=== PATIENT | female | born 1965 | race Caucasian/White ===

== ENCOUNTER 2022-01-26 11:12 | Outpatient (CLI) | payer BC ==
[2022-01-26 12:15] LABS: Hemoglobin 13.7 g/dL (12.0-15.5); Mean Corpuscular HGB CONC 33.3 g/dL (32.0-36.0); Mean Corpuscular Hemoglobin 30.8 pg (27.0-33.0); Mean Corpuscular Volume 92.4 fl (81.6-98.3); Mean Platelet Volume 9.3 fl (7.4-10.4); Platelet Count 302 10x3/uL (150-450); RBC Distribution Width 13.7 % (11.5-14.5); Red Blood Cell (RBC) Count 4.45 10x6/uL (3.90-5.03); White Blood Cell (WBC) Count 6.6 10x3/uL (3.5-10.5)
[2022-01-26 12:27] LABS: Prothrombin Time 11.2 sec (9.5-12.1)
[2022-01-26 12:30] LABS: Anion Gap 12 mmol/L (10-20); BUN (Urea Nitrogen) 13 mg/dL (9.8-20.1); Calc. Creatinine Clearance 0 mL/min (70-130); Calcium 9.4 mg/dL (7.8-10.44); Carbon Dioxide 31 mmol/L (22-29); Chloride 103 mmol/L (98-107); Estimated GFR 97; Glucose 88 mg/dL (70-105); Potassium 4.4 mmol/L (3.5-5.1); Sodium 142 mmol/L (136-145)
== END 2022-01-26 11:13 | disposition home or self-care (01) ==
LOC: LABBT 11:12
PROVIDERS: ATTEND Surgery
DX: Z01.818 Encounter for other preprocedural examination (principal); M51.16 Intervertebral disc disorders with radiculopathy, lumbar region; Z20.822 Contact with and (suspected) exposure to COVID-19
CPT/HCPCS: 80048; 85027; 85610; 85730; 87811; 93005; 93010

== ENCOUNTER 2022-01-29 05:56 | Observation (INO) | payer BC ==
[2022-01-27 13:03] VITALS: BMI 24.7
[2022-01-29] MEDS ORDERED: Thrombin 5000 UNITS/5 ML VIAL ONE (06:34)
[2022-01-29] MEDS ORDERED: Dexmedetomidine 200 MCG/2 ML VIAL ONE (07:02)
[2022-01-29] MEDS ORDERED: fentaNYL Citrate/PF 100 MCG/2 ML SYRINGE ONE (07:02)
[2022-01-29] MEDS ORDERED: Sodium Chloride 0.9% 100 ML ONE (07:17)
[2022-01-29] MEDS ORDERED: CEFAZOLIN 2 GM VIAL ONE (07:17)
[2022-01-29] MEDS ORDERED: Famotidine/PF 20 mg/2ml Vial ONE (07:22)
[2022-01-29] MEDS ORDERED: Ondansetron PF 4 MG/2 ML Vial ONE (07:35)
[2022-01-29] MEDS ORDERED: Dexamethasone 20 MG/5 ML VIAL ONE (07:35)
[2022-01-29] MEDS ORDERED: Lidocaine 1% PF 5 ML VIAL ONE (07:35)
[2022-01-29] MEDS ORDERED: Rocuronium Bromide 10 MG/ML (10ML VIAL) ONE (07:35)
[2022-01-29] MEDS ORDERED: PROPOFOL 200 MG/20 ML VIAL ONE (07:35)
[2022-01-29] MEDS ORDERED: Ketorolac Tromethamine 30 MG/ML VIAL ONE (07:35)
[2022-01-29] MEDS ORDERED: Acetaminophen 325 MG TAB PO PRN (09:27)
[2022-01-29] MEDS ORDERED: Ondansetron PF 4 MG/2 ML Vial IVP PRN (09:27)
[2022-01-29] MEDS ORDERED: traMADol HCl 50 MG TAB PO PRN (09:27)
[2022-01-29] MEDS ORDERED: Fentanyl 100 MCG/2 ML VIAL SLOW IVP PRN (09:27)
[2022-01-29] MEDS ORDERED: ESTRADIOL 0.1 MG TD SCH (09:30)
[2022-01-29] MEDS ORDERED: ceFAZolin 2 GM/Dextrose 50 ML 2 GM in Premix Bag 1 BAG IVPB SCH (09:30)
[2022-01-29] MEDS ORDERED: Ondansetron HCl/PF 4 MG/2 ML Vial IVP PRN (09:42)
[2022-01-29] MEDS ORDERED: Promethazine HCl 25 MG/ML VIAL IM PRN (09:42)
[2022-01-29] MEDS ORDERED: Promethazine HCl 25 MG/ML VIAL IVPB PRN (09:42)
[2022-01-29] MEDS ORDERED: Fentanyl 100 MCG/2 ML VIAL ONE ×2 (09:47→10:47)
[2022-01-29] MEDS ORDERED: Estradiol 0.1mg/24 Hour Patch (Weekly) TD SCH (10:00)
[2022-01-29] MEDS ORDERED: Promethazine HCl 25 MG/ML VIAL ONE (10:10)
[2022-01-29] MEDS: Sodium Chloride 0.9% 1,000 ML IV SCH (12:38)
[2022-01-29] MEDS: ALPRAZolam 1 MG TAB PO SCH ×2 (14:17→20:59)
[2022-01-29] MEDS: Gabapentin 300 MG CAP PO SCH ×2 (14:19→21:00)
[2022-01-29] MEDS: Cyclobenzaprine 10 MG TAB PO PRN ×2 (14:19→21:00)
[2022-01-29] MEDS: HYDROcodone/Acetaminophen 7.5/325 mg Tablet PO PRN ×2 (14:20→18:34)
[2022-01-29] MEDS: CEFAZOLIN 2 GM in Sodium Chloride 0.9% 100 ML IVPB SCH ×2 (14:26→21:01)
[2022-01-29] MEDS ORDERED: ALPRAZOLAM 2 MG PO SCH (15:00)
[2022-01-29] MEDS ORDERED: GABAPENTIN 300 MG PO SCH (15:00)
[2022-01-30] MEDS: Sodium Chloride 0.9% 1,000 ML IV SCH (01:04)
[2022-01-30] MEDS: HYDROcodone/Acetaminophen 7.5/325 mg Tablet PO PRN ×2 (01:48→07:57)
[2022-01-30] MEDS: ALPRAZolam 1 MG TAB PO SCH (07:57)
[2022-01-30] MEDS: Gabapentin 300 MG CAP PO SCH (07:58)
[2022-01-30 08:09] VITALS: BP 133/86; TEMP 97.7
[2022-01-30] MEDS ORDERED: Ascorbic Acid 500 mg Chewable Tablet PO SCH (09:00)
[2022-01-30] MEDS ORDERED: COLLAGEN HYDR PO SCH (09:00)
[2022-01-30] MEDS ORDERED: Cholecalciferol 1,000 UNITS (25 MCG) TAB PO SCH ×2 (09:00)
[2022-01-30] MEDS ORDERED: Calcium Carbonate 500 MG TAB PO SCH (09:00)
[2022-01-30] MEDS ORDERED: ASCORBIC ACID PO SCH (09:00)
[2022-01-30] MEDS ORDERED: [UNRECOGNIZED DRUG - OTHER] PO SCH (09:00)
[2022-01-30] MEDS ORDERED: [UNRECOGNIZED DRUG - OTHER] DT SCH (09:00)
== END 2022-01-30 10:39 | disposition home or self-care (01) ==
LOC: SDC 05:56 → SURG A 09:31
PROVIDERS: ADMIT Surgery; ATTEND Surgery
PROC: 01NB0ZZ Release Lumbar Nerve, Open Approach (ICD-10-PCS; principal; 2022-01-29)
DX: M51.16 Intervertebral disc disorders with radiculopathy, lumbar region (principal); M48.061 Spinal stenosis, lumbar region without neurogenic claudication; Z79.899 Other long term (current) drug therapy; Z88.5 Allergy status to narcotic agent; Z91.048 Other nonmedicinal substance allergy status; Z91.018 Allergy to other foods
CPT/HCPCS: 76000; 96365; 96376; G0378; J0690; J1100; J1885; J2405; J2550; J2704; J3010; J3370; J3490; S0028